=== PATIENT | female | born 1975 | race Caucasian/White ===

== ENCOUNTER 2017-12-19 09:30 | Outpatient (CLI) | payer OTHER ==
[2017-12-19] MEDS ORDERED: ISOVUE-370 76%-LOCM 1 ML ONE (13:41)
--- NOTE | 2017-12-19 16:10 | CT ---
CT PELVIS WITH CONTRAST: HISTORY: Previously identified left groin mass. COMPARISON: None. CORRELATION: Pelvic ultrasound from 11/27/2017. FINDINGS: The visualized solid organs and alimentary canal are unremarkable. Mildly distended urinary bladder. There is a hypodensity in the right hemipelvis, likely representin g an ovarian cyst, measuring 2.2 x 2.2 cm, with an attenuation coefficient of 3 Hounsfield units. Th e left adnexa is unremarkable. The uterus is also unremarkable. There is no pelvic lymphadenopathy, free air, or free fluid. There is no evidence of a mass or lymphadenopathy in the inguinal region. There is no abnormal mass in the anterior left hemipelvis. There is no evidence of a corresponding CT finding when compared to the previous ultrasound. IMPRESSION: No CT correlate of an abnormal mass in the left hemipelvis or left inguinal region. POS: PRATIBHA
== END 2017-12-19 09:31 | disposition home or self-care (01) ==
LOC: BICCT 09:30
PROVIDERS: ATTEND Family Medicine
DX: R19.09 Other intra-abdominal and pelvic swelling, mass and lump (principal)
CPT/HCPCS: 72193

== ENCOUNTER 2018-02-04 06:06 | Day surgery (SDC) | payer OTHER ==
[2018-02-03 09:03] VITALS: BMI 20.2
[2018-02-04] MEDS ORDERED: Bupivacaine/Epinephrine 0.25% 30 ML VIAL ONE (06:36)
[2018-02-04 06:48] LABS: #Eosinphils 0.1 thou/uL (0.0-0.7); #Lymphocytes 2.2 thou/uL (1.20-3.40); #Monocytes 0.8 thou/uL (0.11-0.59); #Neutrophils 4.1 thou/uL (1.40-6.50); %Basophils 0.5 % (0.0-1.0); %Eosinophils 1.9 % (0.0-10.0); %Lymphocytes 30.1 % (21.0-51.0); %Monocytes 11.4 % (0.0-10.0); %Neutrophils 56.1 % (42.0-75.0); Mean Corpuscular HGB CONC 33.5 g/dL (32.0-36.0); Mean Corpuscular Hemoglobin 32.9 pg (27.0-31.0); Mean Corpuscular Volume 98.3 fL (78.0-98.0); Mean Platelet Volume 7.7 fL (7.4-10.4); Platelet Count 249 thou/uL (130-400); RBC Distribution Width 11.9 % (11.5-14.5); Red Blood Cell (RBC) Count 4.25 mill/uL (4.20-5.40); White Blood Cell (WBC) Count 7.4 thou/uL (4.8-10.8)
[2018-02-04] MEDS ORDERED: Levofloxacin 500 mg/D5W 100 ml Premix Bag ONE (06:55)
[2018-02-04] MEDS ORDERED: Ketorolac Tromethamine 30 MG/ML VIAL ONE (06:56)
[2018-02-04 07:05] LABS: Anion Gap 12 mmol/L (10-20); BUN (Urea Nitrogen) 10 mg/dL (7.0-18.7); Calc. Creatinine Clearance 74 mL/min (70-130); Calcium 9.7 mg/dL (7.8-10.44); Carbon Dioxide 25 mmol/L (22-29); Chloride 105 mmol/L (98-107); Estimated GFR-MDRD 79; Glucose 98 mg/dL (70-105); Potassium 4.5 mmol/L (3.5-5.1); Sodium 137 mmol/L (136-145)
[2018-02-04] MEDS ORDERED: Scopolamine 1.5 mg/72 hour Patch ONE (07:08)
[2018-02-04] MEDS ORDERED: Midazolam HCl 2 mg/2 ml Vial ONE (07:08)
[2018-02-04] MEDS ORDERED: Fentanyl 250 MCG/5 ML VIAL ONE (07:16)
[2018-02-04] MEDS ORDERED: SUGAMMADEX SODIUM 200 MG/2 ML VIAL ONE (09:03)
[2018-02-04] MEDS ORDERED: Fentanyl 100 MCG/2 ML VIAL ONE ×2 (09:30→09:51)
[2018-02-04] MEDS ORDERED: HYDROcodone/Acetaminophen 5/325 mg Tablet ONE (11:22)
--- NOTE | 2018-02-04 11:27 | OP ---
DATE OF PROCEDURE: 02/04/2018 PREOPERATIVE DIAGNOSIS: Left femoral hernia. POSTOPERATIVE DIAGNOSIS: Left femoral hernia. PROCEDURES: Robotic laparoscopic repair, medium size, Bard 3DMax mesh, repair of left femoral hernia. ANESTHESIA: General, local of 0.5% Marcaine with epinephrine 30 mL. DESCRIPTION OF PROCEDURE: The patient was taken to the operating room, where under general anesthesia, abdomen was clipped of hair, prepared with ChloraPrep, and draped in routine fashion. A 0.5% Marcaine with epinephrine was infiltrated in the skin and subcutaneous tissue about the operative site. Supraumbilical incision was made. Pneumoperitoneum to 15 mmHg obtained with a Veress needle, replaced with an 11-mm port with the balloon catheter. Bilateral midabdominal incision was made in far lateral abdomen. An 8-mm port was placed. The robot was docked and robotic femoral hernia repair was undertaken. Visualization of the left groin revealed absence of any peritoneal defects. A flap of peritoneum was taken down from the anterosuperior iliac spine to midline and flap of peritoneum dissected free and taken down preserving the inferior epigastric arteries, identifying the femoral vein and the Shreyas ligament. There was incarcerated preperitoneal fat in the femoral hernia defect, this was reduced, and the femoral hernia defect appreciated. Round ligament was dissected free and divided to make room for the mesh, medium mesh applied to the defect and secured to Shreyas ligament with 2-0 Vicryl and to the anterior abdominal wall just left lateral to the inferior epigastric vessels with 2-0 Vicryl. Once mesh was probably positioned, covering the femoral hernia defect in the groin, the peritoneal flap was closed with continuous suture of #2-0 V-Loc suture. Good hemostasis was noted. Sutures and needles removed. counts were correct. Pneumoperitoneum was reduced. Supraumbilical fascia was approximated with [id number] suture of 0 Vicryl and skin incisions were approximated with subdermal 4-0 Monocryl and [place] glue applied. Job ID: [id number]
[2018-02-04] MEDS ORDERED: Promethazine HCl 25 MG/ML VIAL ONE (11:42)
== END 2018-02-04 12:00 | disposition home or self-care (01) ==
LOC: SDC 06:06
PROVIDERS: ATTEND Specialist
PROC: 0YU84JZ Supplement Left Femoral Region with Synthetic Substitute, Percutaneous Endoscopic Approach (ICD-10-PCS; principal; 2018-02-04)
DX: K41.30 Unilateral femoral hernia, with obstruction, without gangrene, not specified as recurrent (principal); Z88.0 Allergy status to penicillin
CPT/HCPCS: 36415; 80048; 85025; 96374; C1781; J0131; J1885; J1956; J2250; J2550; J3010